=== PATIENT | male | born 1955 | race Caucasian/White ===

== ENCOUNTER 2016-11-19 10:00 | Day surgery (SDC) | payer BC ==
[~2016-11-19] VITALS: Ht 180.3 cm; Wt 118.0 kg
[~2016-11-19 10:00] MED LIST: ATORVASTATIN CA40 MG PO; CIPRO500 MG PO; COQ-10100 MG PO; LOSARTAN POTASS25 MG PO; NAPROXEN SODIU220 M1 PO; RAPAFLO8 MG PO; VITAMIN D-32000 UNI2 PO
[2016-11-19 10:35] VITALS: BP 159/96
[2016-11-19 13:50] VITALS: BP 94/65
[2016-11-19 15:00] VITALS: BP 123/72
[2016-11-19 16:53] VITALS: BP 151/87
[2016-11-19 17:38] VITALS: BP 130/75
== END 2016-11-19 17:54 | disposition home or self-care (01) ==
LOC: SDC 10:00
DX: N20.1 Calculus of ureter (principal); I10 Essential (primary) hypertension; R12 Heartburn; Z84.1 Family history of disorders of kidney and ureter; Z88.2 Allergy status to sulfonamides; Z82.49 Family history of ischemic heart disease and other diseases of the circulatory system; Z80.9 Family history of malignant neoplasm, unspecified
CPT/HCPCS: 74000; 76000; 93005; C1876; J0690; J1100; J1580; J2405; J2765; J3010